=== PATIENT | female | born 1935 | race Caucasian/White ===

== ENCOUNTER 2021-09-21 09:05 | Observation (INO) | payer OTHER ==
[~2021-09-21] VITALS: Ht 162.6 cm; Wt 56.7 kg
[2021-09-21 10:03] LABS: HEMOGLOBIN 14.5 gm/dl (12.3-15.3); RED BLOOD COUNT 5.35 M/UL (4.00-5.10); WHITE BLOOD COUNT 9.7 K/UL (4.5-11.0)
[2021-09-21 10:56] LABS: BUN/CREATININE RATIO 30 (0-10)
[2021-09-21] MEDS ORDERED: LUMIGAN 0.01%2.5 ML EYEBOTH (14:54)
[2021-09-21] MEDS ORDERED: ATORVASTATIN CA40 MG PO (14:54)
[2021-09-21] MEDS ORDERED: AMLODIPINE BESYL5 MG PO (14:54)
[2021-09-21] MEDS ORDERED: PENTOXIFYLLINE400 MG PO (14:55)
[2021-09-21] MEDS ORDERED: POTASSIUM CHLO10 MEQ PO (14:56)
[2021-09-21] MEDS ORDERED: CEPHALEXIN250 MG PO (14:58)
[2021-09-21] MEDS ORDERED: GABAPENTIN300 MG PO (14:59)
[2021-09-21] MEDS ORDERED: OMEPRAZOLE20 MG PO (14:59)
[2021-09-22 00:59] LABS: HEMOGLOBIN 12.3 gm/dl (12.3-15.3); RED BLOOD COUNT 4.52 M/UL (4.00-5.10)
[2021-09-22 01:09] LABS: BUN/CREATININE RATIO 26 (0-10)
[2021-09-22] MEDS ORDERED: COENZYME Q10200 MG PO (11:49)
[2021-09-22] MEDS ORDERED: HYDROCODON-ACE1 EAC2 PO (11:51)
[2021-09-22] MEDS ORDERED: PYRIDIUM100 MG PO (11:53)
[2021-09-23 07:19] LABS: HEMOGLOBIN 13.7 gm/dl (12.3-15.3); WHITE BLOOD COUNT 7.2 K/UL (4.5-11.0)
[2021-09-23 07:24] LABS: RED BLOOD COUNT 5.11 M/UL (4.00-5.10)
[2021-09-23 07:36] LABS: BUN/CREATININE RATIO 28 (0-10)
[2021-09-25 06:37] LABS: HEMOGLOBIN 14.1 gm/dl (12.3-15.3); RED BLOOD COUNT 5.27 M/UL (4.00-5.10); WHITE BLOOD COUNT 6.9 K/UL (4.5-11.0)
[2021-09-25 07:00] LABS: BUN/CREATININE RATIO 26 (0-10)
[2021-09-26 07:48] LABS: HEMOGLOBIN 13.8 gm/dl (12.3-15.3); RED BLOOD COUNT 5.17 M/UL (4.00-5.10); WHITE BLOOD COUNT 7.8 K/UL (4.5-11.0)
[2021-09-26 08:06] LABS: BUN/CREATININE RATIO 26 (0-10)
[2021-09-26] MEDS ORDERED: HYDROCODON-ACE1 EAC2 PO (14:09)
[2021-09-26] MEDS ORDERED: GABAPENTIN300 MG PO (14:09)
--- NOTE | 2021-09-26 16:46 | NUR ---
[facility] NOTIFIED OF TRANSPORT TO [facility] AT 1615. REPORT CALLED TO ANTONIO AT [facility] AT 1645.
== END 2021-09-26 18:01 ==
LOC: ER1 09:05 → M/S 12:50 → CDU 12:50 → 3 EAST 18:48 → M/S 09-22 18:45
PROVIDERS: Family Medicine; Physician Assistant Medical; ADMIT Internal Medicine
DX: R53.1 Weakness (principal); R77.8 Other specified abnormalities of plasma proteins; J44.9 Chronic obstructive pulmonary disease, unspecified; I11.9 Hypertensive heart disease without heart failure; D64.9 Anemia, unspecified; E78.5 Hyperlipidemia, unspecified; G62.9 Polyneuropathy, unspecified; I08.3 Combined rheumatic disorders of mitral, aortic and tricuspid valves; Z90.49 Acquired absence of other specified parts of digestive tract; Z90.13 Acquired absence of bilateral breasts and nipples; Z90.710 Acquired absence of both cervix and uterus; Z85.3 Personal history of malignant neoplasm of breast; Z96.651 Presence of right artificial knee joint; Z66 Do not resuscitate; Z20.822 Contact with and (suspected) exposure to COVID-19; I49.1 Atrial premature depolarization
CPT/HCPCS: ECHO; 36415; 71045; 80048; 80053; 81001; 82550; 82553; 83605; 83735; 83874; 84132; 84484; 85025; 85027; 86140; 93005; 93306; 97110-GP-CQ; 97163; 97166; 97530; 99285; G0378; U0002